=== PATIENT | female | born 1995 | race Caucasian/White ===

== ENCOUNTER 2016-09-01 13:00 | Emergency (ER) | payer OTHER | END 2016-09-01 16:04 | disposition home or self-care (01) | LOC: ER1 13:00 | DX: S43.401A Unspecified sprain of right shoulder joint, initial encounter (principal); M25.532 Pain in left wrist; S19.9XXA Unspecified injury of neck, initial encounter; R91.1 Solitary pulmonary nodule; F41.9 Anxiety disorder, unspecified | CPT/HCPCS: 72040; 73030; 73110; 99283 ==

== ENCOUNTER → 2016-10-06 | Outpatient (CLI) | payer OTHER | LOC: EMI 13:00 | DX: R51 Headache (principal); G89.29 Other chronic pain; J34.89 Other specified disorders of nose and nasal sinuses | CPT/HCPCS: 70551 ==

== ENCOUNTER → 2020-11-17 | Outpatient (CLI) | payer OTHER ==
[2020-11-17 12:17] LABS: RED BLOOD COUNT 4.39 M/UL (4.00-5.10); WHITE BLOOD COUNT 6.5 K/UL (4.5-11.0)
[2020-11-17 12:50] LABS: BUN/CREATININE RATIO 22 (0-10)
[2020-11-18 07:13] LABS: RHEUMATOID ARTHRITIS FACTOR <10.0 IU/mL (0.0-13.9)
[2020-11-18 14:15] LABS: ANGIOTENSIN-CONVERTING ENZYME 17 U/L (14-82)
[2020-11-19 13:15] LABS: ANTIHISTONE ANTIBODIES 0.4 Units (0.0-0.9)
== END ==
LOC: LAB 10:47
PROVIDERS: Internal Medicine
DX: M25.50 Pain in unspecified joint (principal); L73.2 Hidradenitis suppurativa; M19.90 Unspecified osteoarthritis, unspecified site; Z79.2 Long term (current) use of antibiotics
CPT/HCPCS: 36415; 80053; 82164; 83520; 85025; 85652; 86140; 86200; 86431